=== PATIENT | male | born 1970 | race Caucasian/White ===

== ENCOUNTER 2019-09-15 12:54 | Emergency (ER) | payer MEDICAID ==
[~2019-09-15] VITALS: Ht 175.3 cm; Wt 112.0 kg
[~2019-09-15 12:54] MED LIST: ALBU2.5V10 NEB; ALBU8HFA PO; BENZ1LOZ61 PO; BUDE10.22 INH; PRED50TA PO
[2019-09-15 14:33] LABS: BASOPHILS % (AUTO) 0.6 % (0-1); EOSINOPHILS # (AUTO) 0.4 X10'3 (0-0.9); EOSINOPHILS % (AUTO) 5.1 % (0-6); HEMATOCRIT 40.2 % (42.0-52.0); HEMOGLOBIN 13.8 g/dl (14.0-17.9); LYMPHOCYTES # (AUTO) 2.1 X10'3 (1.1-4.8); LYMPHOCYTES % (AUTO) 30.6 % (21-51); MEAN CORPUSCULAR HEMOGLOBIN 31.9 PG (27.0-31.0); MEAN CORPUSCULAR HGB CONC 34.4 g/dL (33.0-36.5); MEAN CORPUSCULAR VOLUME 92.9 FL (78-98); MEAN PLATELET VOLUME 8.4 FL (7.4-10.4); MONOCYTES # (AUTO) 0.6 X10'3 (0-0.9); MONOCYTES % (AUTO) 7.9 % (2-12); NEUTROPHILS # (AUTO) 3.9 X10'3 (1.8-7.7); NEUTROPHILS % (AUTO) 55.8 % (42-75); PLATELET COUNT 232 X10'3 (140-440); RED BLOOD COUNT 4.33 X10'6 (4.70-6.10); RED CELL DISTRIBUTION WIDTH 13.3 % (11.5-14.5)
[2019-09-15 14:40] LABS: PARTIAL THROMBOPLASTIN TIME 25 SECONDS (22-32)
[2019-09-15 14:43] LABS: ALANINE AMINOTRANSFERASE 66 U/L (12-78); ALBUMIN 3.6 G/DL (3.4-5.0); ALBUMIN/GLOBULIN RATIO 1.1 (1.1-1.5); ALKALINE PHOSPHATASE 43 IU/L (46-116); ANION GAP 7 (8-16); ASPARTATE AMINO TRANSFERASE 45 U/L (10-37); BILIRUBIN,TOTAL 0.4 MG/DL (0.1-1.0); BLOOD UREA NITROGEN 14 MG/DL (7-18); BUN/CREATININE RATIO 10.1 (5.4-32.0); CALCIUM 8.1 MG/DL (8.5-10.1); CHLORIDE 107 MMOL/L (99-107); CREATININE 1.39 MG/DL (0.60-1.10); POTASSIUM 3.8 MMOL/L (3.5-5.1); SODIUM 144 MMOL/L (135-145); TOTAL CARBON DIOXIDE 29.7 MMOL/L (24-32); TOTAL PROTEIN 6.9 G/DL (6.4-8.2); eGFR 55 ML/MIN
[2019-09-15 14:53] LABS: GLUCOSE 113 MG/DL (70-104)
[2019-09-15 18:30] VITALS: BP 164/111
[2019-09-15] MEDS ORDERED: BACDS PO (18:57)
== END 2019-09-15 20:13 | disposition home or self-care (01) ==
LOC: ER 12:55
DX: L03.116 Cellulitis of left lower limb (principal); L03.115 Cellulitis of right lower limb; J44.9 Chronic obstructive pulmonary disease, unspecified; F12.90 Cannabis use, unspecified, uncomplicated; R06.02 Shortness of breath; R42 Dizziness and giddiness; Z88.0 Allergy status to penicillin; Z79.899 Other long term (current) drug therapy
CPT/HCPCS: 36415; 71045; 80053; 83880; 84484; 85025; 85610; 85730; 93005; 99285

== ENCOUNTER 2020-01-30 02:50 | Emergency (ER) | payer MEDICAID ==
[~2020-01-30] VITALS: Ht 175.3 cm; Wt 114.5 kg
[2020-01-30] MEDS ORDERED: ipratropium/albuterol 3ml nebule NEB ONE (03:00)
[2020-01-30] MEDS ORDERED: methylPREDNISolone sod succ 125mg/2ml vial IV ONE (03:00)
[2020-01-30 03:24] LABS: BASOPHILS % (AUTO) 0.5 % (0-1); EOSINOPHILS # (AUTO) 0.8 X10'3 (0-0.9); EOSINOPHILS % (AUTO) 10.1 % (0-6); HEMATOCRIT 42.7 % (42.0-52.0); HEMOGLOBIN 14.5 g/dl (14.0-17.9); LYMPHOCYTES # (AUTO) 2.2 X10'3 (1.1-4.8); MEAN CORPUSCULAR HEMOGLOBIN 31.1 PG (27.0-31.0); MEAN CORPUSCULAR HGB CONC 33.9 g/dL (33.0-36.5); MEAN CORPUSCULAR VOLUME 91.8 FL (78-98); MEAN PLATELET VOLUME 8.7 FL (7.4-10.4); MONOCYTES # (AUTO) 0.8 X10'3 (0-0.9); MONOCYTES % (AUTO) 10.2 % (2-12); NEUTROPHILS # (AUTO) 3.8 X10'3 (1.8-7.7); NEUTROPHILS % (AUTO) 50.2 % (42-75); PLATELET COUNT 238 X10'3 (140-440); RED BLOOD COUNT 4.65 X10'6 (4.70-6.10); RED CELL DISTRIBUTION WIDTH 13.2 % (11.5-14.5); WHITE BLOOD COUNT 7.6 X10'3 (4.5-11.0)
[2020-01-30 03:26] LABS: ALANINE AMINOTRANSFERASE 74 U/L (12-78); ALBUMIN 4.3 G/DL (3.4-5.0); ALBUMIN/GLOBULIN RATIO 1.2 (1.1-1.5); ALKALINE PHOSPHATASE 46 IU/L (46-116); ANION GAP 7 (8-16); ASPARTATE AMINO TRANSFERASE 66 U/L (10-37); BILIRUBIN,TOTAL 0.7 MG/DL (0.1-1.0); BLOOD UREA NITROGEN 16 MG/DL (7-18); BUN/CREATININE RATIO 10.7 (5.4-32.0); CALCIUM 8.9 MG/DL (8.5-10.1); CHLORIDE 103 MMOL/L (99-107); CREATININE 1.49 MG/DL (0.60-1.10); GLUCOSE 110 MG/DL (70-104); POTASSIUM 3.7 MMOL/L (3.5-5.1); SODIUM 141 MMOL/L (135-145); TOTAL CARBON DIOXIDE 31.2 MMOL/L (24-32); TOTAL PROTEIN 7.9 G/DL (6.4-8.2); eGFR 50 ML/MIN
[2020-01-30] MEDS ORDERED: PRED20TA PO (03:47)
[2020-01-30 03:54] VITALS: BP 158/91
== END 2020-01-30 03:56 | disposition home or self-care (01) ==
LOC: ER 02:51
DX: J44.1 Chronic obstructive pulmonary disease with (acute) exacerbation (principal); R06.02 Shortness of breath; R06.2 Wheezing; F12.90 Cannabis use, unspecified, uncomplicated; Z98.890 Other specified postprocedural states; Z88.0 Allergy status to penicillin; Z79.899 Other long term (current) drug therapy
CPT/HCPCS: 36415; 71045; 80053; 83880; 84484; 85025; 93005; 94640; 96374; 99285; J2930; 94760

== ENCOUNTER 2024-10-08 22:16 | Emergency (ER) | payer MEDICAID ==
[~2024-10-08] VITALS: Ht 172.7 cm; Wt 113.9 kg
[~2024-10-08 22:16] MED LIST changes: +ACET-1008 PO; -ALBU2.5V10 NEB; -ALBU8HFA PO; -BENZ1LOZ61 PO; -BUDE10.22 INH; +LACT1CAP26 PO; +LEVO750T68 PO; +NO HOME MEDS; +NOR5T PO; +PANT40TA54 PO; -PRED50TA PO
[2024-10-08 22:26] VITALS: TEMP 98.8
--- NOTE | 2024-10-08 23:25 | RADIOLOGY REPORT ---
CHEST RADIOGRAPH Indication: infection Technique: Single frontal view of the chest was obtained COMPARISON: DI CHEST,SINGLE VIEW on DOS: 09/21/24; CT chest 09/21/24 FINDINGS: Lines and Tubes: None Lungs: Retrocardiac opacity is noted consistent with left lower lobe consolidation which was seen on the prior CT scan from 09/21/24. Right lung is clear. Pleura: No effusion. No pneumothorax. Cardiomediastinal contours: Unremarkable IMPRESSION: Left lower lobe consolidation which was seen on the prior CT scan from 09/21/24.
[2024-10-08 23:38] LABS: MEAN PLATELET VOLUME 8.5 FL (7.4-10.4); RED CELL DISTRIBUTION WIDTH 13.5 % (11.5-14.5)
[2024-10-08 23:51] LABS: CREATININE 1.31 MG/DL (0.60-1.10); TOTAL CARBON DIOXIDE 28.1 MMOL/L (24-32); eCRCL 62 ML/MIN; eGFR 57 ML/MIN
[2024-10-09 00:07] LABS: EOSINOPHILS % (MANUAL) 2.0 % (0-6); LYMPHOCYTES % (MANUAL) 22.0 % (21-51); MONOCYTES % (MANUAL) 6.0 % (2-12); NEUTROPHILS % (MANUAL) 70.0 % (42-75)
[2024-10-09 00:08] LABS: PLATELET ESTIMATE NORMAL
--- NOTE | 2024-10-09 01:39 | Physician Documentation ---
History of Present Illness ~ Chief Complaint: Elbow pain Stated Complaint: ELBOW PAIN Time Seen by MD: 01:28 OK to notify your PCP?: Yes Primary Medical Doctor: [facility] Source: patient, RN/, RN notes reviewed, old records Mode of Arrival: POV Exam Limitations: no limitations HPI 54 year old male seen in bed 04 presents to the emergency department for complaints of elbow pain which began last night. Patient states that he cannot move his arm at all. He states that the pain began out of no where. He denies any over or excessive use of his right arm. Of note he endorses similar pain in the past and he states he had it drained and he is hoping to receive that today. Tetanus within 5 years: Yes (2019) Medication Reconciliation Allergies: Coded Allergies: Penicillins (Verified Allergy, Intermediate, 10/08/24) Scheduled Amlodipine Besylate (Amlodipine Besylate), 10 MG PO DAILY Dexamethasone* (Decadron*), 1 TAB PO DAILY Lactobacillus Rhamnosus (Culturelle), 1 CAP PO DAILY Levofloxacin (Levofloxacin), 1 TAB PO DAILY Naproxen (Naproxen), 1 TAB PO Q12H Pantoprazole Sodium (Pantoprazole Sodium), 40 MG PO BKF Scheduled PRN Acetaminophen (Tylenol), 1 TAB PO Q4HPRN PRN for pain or fever, (Reported) Miscellaneous Medications Home Med List (No Home Medications), (Reported) Past Medical History Past Medical History: COPD, Hernia Past Surgical History: orthopedic surgeries Patient History: FH: heart attack Other Past Family History: Father: [place] at 60 Alcohol Use: None Drug Use: marijuana Lives with: Family Lives In: Home Review of Systems All Other Systems at this time: Reviewed and Negative ROS As stated above in the HPI, otherwise all systems are reviewed and negative. Physical Exam Vital Signs: RN Vital Signs have been reviewed: Yes, Temperature: 98.8, Source: Oral, Heart Rate: 88, Respiratory Rate: 16, BP: 140/89, Pulse Oximetry: 95, Weight: 113.900 Oxygen Flow Rate: 0 Pulse Oximetry Reflects: adequate oxygenation Physical Exam General: The patient is well developed, well nourished, nontoxic appearing and is in no acute distress. Skin: Tiger, warm and dry with no rashes. HEENT: Head was normocephalic and atraumatic. Eyes - pupils equal, round, reactive to light and accommodation. Extraocular movements were intact. Conjunctivae were nonicteric. Ears - bilateral tympanic membranes were normal. The mouth and oropharynx were clear with moist mucous membranes. There were no pharyngeal exudates or erythema. Neck: Supple and nontender. There was no jugular venous distention, lymphadenopathy, thyromegaly or masses. Chest: Clear to auscultation bilaterally without wheezes, rales or rhonchi. No accessory muscle use. No dullness to percussion. Heart: Rate regular and rhythmic. S1, S2. No murmurs. Palpation of the chest wall was normal. No rubs or thrills. Abdomen: Soft, nontender and nondistended. Positive bowel sounds. No guarding or rebound. No hepatosplenomegaly or palpable masses. Extremities: Red and warm right elbow. Proximal bersa is swollen. Decreased range of motion secondary to pain. No cyanosis, clubbing or edema. The patient moves all extremities. Pulses were equal and symmetric. Neurologic: Cranial nerves II-XII were intact. Sensation was intact to light touch throughout. Motor strength was 5/5 in all four extremities. Deep tendon reflexes were intact in both upper and lower extremities. Psychologic: The patient was oriented to person, place and time. The patient demonstrated appropriate judgement and insight. Procedures Splinting Pre-Made Type: Pre-Proc Neuro Vasc Exam: normal Post-Proc Neuro Vasc Exam: normal Splint Placed By: Nurse Tolerated Procedure Well?: yes, no complications Procedure Note Sling was given to patient for his right elbow. Progress Results/Orders Reviewed/noted all lab results: Yes Results/Orders Orders - LEVI TRISTAN MD Culture Blood (10/08/24 22:45) Chest,Single View (10/08/24 22:45) Monitor (10/08/24 22:45) Oxygen (10/08/24 22:45) Saline Lock (10/08/24 22:45) Straight Cath For Urine Sample (10/08/24 22:45) Ortho Orders (10/09/24 01:49) Completed Orders - LEVI TRISTAN MD Cbc/Diff (10/08/24 22:45) Urinalysis, Cult If Indicated (10/08/24 22:45) Chest,Single View (10/08/24 22:45) Procalcitonin (10/08/24 22:45) BMP (10/08/24 22:45) Lacticsepsis (10/08/24 22:45) C-Reactive Protein (10/08/24 22:45) Man Diff (10/08/24 23:01) Uric Acid (10/08/24 23:01) Dexamethasone Tablet (Decadron Tablet) (10/09/24 01:45) Hydrocodone/Apap 10/325 (Henry 10/325mg (10/09/24 01:45) Naproxen Tablet (Naprosyn Tablet) (10/09/24 01:50) Medications Received in ER Medications (Trade) Dose Ordered Sig/Kamlesh Route PRN Reason Start Time Stop Time Status Last Admin Dose Admin (Decadron tablet) 16 mg ONCE ONCE PO 10/09/24 01:45 10/09/24 01:46 DC 10/09/24 02:00 16 MG (Henry 10/325mg tab) 1 tab ONCE ONCE PO 10/09/24 01:45 10/09/24 01:46 DC 10/09/24 02:00 1 TAB (Naprosyn tablet) 500 mg ONCE ONCE PO 10/09/24 01:50 10/09/24 01:51 DC 10/09/24 02:00 500 MG Vital Signs 10/08/24 10/08/24 10/09/24 10/09/24 22:26 23:36 00:11 00:30 Temp 98.8 Pulse 87 88 80 Resp 16 15 16 16 B/P (MAP) 124/91 140/89 (106) 138/82 (100) Pulse Ox 94 95 96 O2 Flow Rate 0 0 10/09/24 10/09/24 10/09/24 01:30 02:00 03:32 Pulse 82 85 Resp 14 16 18 B/P (MAP) 141/83 (102) 146/85 Pulse Ox 96 99 Laboratory Tests Test 10/08/24 23:01 10/09/24 01:11 White Blood Count 6.8 Red Blood Count 4.90 Hemoglobin 14.9 Hematocrit 43.9 Mean Corpuscular Volume 89.5 Mean Corpuscular Hemoglobin 30.3 Mean Corpuscular Hemoglobin Concent 33.8 Red Cell Distribution Width 13.5 Platelet Count 397 Mean Platelet Volume 8.5 Neutrophils (%) (Auto) 56.3 Lymphocytes (%) (Auto) 35.1 Monocytes (%) (Auto) 6.2 Eosinophils (%) (Auto) 1.3 Basophils (%) (Auto) 1.1 H Neutrophils # (Auto) 3.8 Lymphocytes # (Auto) 2.4 Monocytes # (Auto) 0.4 Eosinophils # (Auto) 0.1 Basophils # (Auto) 0.1 CBC Comment Differential Total Cells Counted 100 Neutrophils % (Manual) 70.0 Lymphocytes % (Manual) 22.0 Monocytes % (Manual) 6.0 Eosinophils % (Manual) 2.0 Platelet Estimate Normal Red Blood Cell Morphology Normal Basophilic Stippling Sodium Level 136 Potassium Level 4.0 Chloride Level 100 Carbon Dioxide Level 28.1 Anion Gap 8 Blood Urea Nitrogen 20 H Creatinine 1.31 H Estimated GFR/1.73 m2 57 BUN/Creatinine Ratio 15.3 Glucose Level 126 H Lactic Acid Level 1.5 Uric Acid 6.1 Calcium Level 8.6 C-Reactive Protein 3.51 H Albumin 3.1 L Procalcitonin < 0.05 Chemistry Comments Urine Specimen Description Cln catch midstream Urine Color Yellow Urine Clarity Clear Urine pH 6.0 Urine Specific [place] >=1.030 Urine Protein Negative Urine Glucose (UA) Negative Urine Ketones Negative Urine Occult Blood Negative Urine Nitrite Negative Urine Bilirubin Negative Urine Urobilinogen 0.2 Urine Leukocyte Esterase Negative Urine Culture Indicated Not ind Volume Urine Centrifuged 10 ml Urine Comment Microbiology Date/Time Source Procedure Growth Status 10/08/24 23:01 Blood A/C Left Blood Culture - Preliminary NEGATIVE (LESS THAN 24 HOURS) Resulted Re-Evaluation Re-Evaluation : Re-Evaluation: Improved Progress Patient was seen and examined. Patient is given reassurance. Patient was presenting with a red swollen elbow there was no overuse of the elbow so the etiology is unclear he did have recent pneumonia on antibiotics seating of the joint was considered but he has range of motion so septic joint is unlikely. For that reason laboratory work was obtained there was no elevated white count no anemia no left shift. Lactic acid normal at 1.5 procalcitonin is negative at 0.05. Patient's creatinine function has a bit elevated at 1.31. Otherwise patient appeared well no fevers stable vitals. The patient then received Henry for his pain uric acid was negative C-reactive protein however is elevated at 3.51 which suggests inflammatory response. Patient received steroids Decadron Henry 10 naproxen sling and then was discharged home to follow up with Orthopedic surgery no new antibiotics were given patient is doing well otherwise. EKG/XRAY/CT/US/VASC/MRI Chest X-Ray : Additional Comments CHEST RADIOGRAPH Indication: infection Technique: Single frontal view of the chest was obtained COMPARISON: DI CHEST,SINGLE VIEW on DOS: 09/21/24; CT chest 09/21/24 FINDINGS: Lines and Tubes: None Lungs: Retrocardiac opacity is noted consistent with left lower lobe consolidation which was seen on the prior CT scan from 09/21/24. Right lung is clear. Pleura: No effusion. No pneumothorax. Cardiomediastinal contours: Unremarkable IMPRESSION: Left lower lobe consolidation which was seen on the prior CT scan from 09/21/24. Electronically Signed by:AUSTEN IRVING MD Date & Time: 10/08/24 179 Medical Decision Making Elbow Diff Dx:Considerations: Include: Arthritis, Contustion, DJD, Gout, Olecranon bursitis, Osteomyelitis, Rheumatoid arthritis, Septic, Sprain, Other Departure Time of Disposition: 02: Disposition: 01 HOME / SELF CARE / HOMELESS Impression: Primary Impression: Bursitis Qualified Codes: M70.21 - Olecranon bursitis, right elbow Condition: Stable Discharge Instructions: Bursitis, [id number] Referrals: NO PRIMARY CARE PROVIDER (PCP) PIOTR DUFFY Jr., MD Prescriptions Naproxen (Naproxen) 500 Mg Tablet 1 TAB PO Q12H, #20 TAB Prov: LEVI TRISTAN MD 10/09/24 Dexamethasone* (Decadron*) 4 Mg Tablet 1 TAB PO DAILY for 5 Days, #5 TAB Prov: LEVI TRISTAN MD 10/09/24 Education Educated: Patient, Family Educated regarding: diagnosis, treatment, prognosis, need for follow up Signature Scribe Signature: Scribed for Levi Tristan MD by Kalyn Gould . 10/09/24 02:11 Attestation: The note accurately reflects work and decisions made by me.Levi Tristan MD 10/09/24 01:39 LEVI TRISTAN MD Oct 09, 2024 01:39 KALYN SANTIZO Oct 09, 2024 02:07
[2024-10-09] MEDS ORDERED: DEC4T PO (01:52)
[2024-10-09] MEDS ORDERED: NAPR-56 PO (01:52)
[2024-10-09] MEDS: HYDROcodone/acetaminophen 10/325mg tab PO ONE (02:00)
[2024-10-09 02:22] LABS: LEUKOCYTE ESTERASE ,URINE NEGATIVE (Neg); NITRITES, URINE NEGATIVE (Neg); OCCULT BLOOD,URINE NEGATIVE (Neg)
[2024-10-09 02:25] LABS: UA COLLECTION TYPE CLN CATCH MIDSTREAM
[2024-10-09 03:32] VITALS: BP 146/85; PULSE 85; RESP 18; O2SAT 99
== END 2024-10-09 02:30 | disposition home or self-care (01) ==
LOC: ER 22:17
DX: M71.521 Other bursitis, not elsewhere classified, right elbow (principal); J44.9 Chronic obstructive pulmonary disease, unspecified; F12.90 Cannabis use, unspecified, uncomplicated; Z88.0 Allergy status to penicillin; Z79.899 Other long term (current) drug therapy
CPT/HCPCS: 36415; 71045; 80048; 81003; 83605; 84145; 84550; 85007; 85025; 86140; 87040; 99285; A4565